=== PATIENT | female | born 1980 | race Caucasian/White ===

== ENCOUNTER 2023-06-21 05:14 | Inpatient (IN) ==
[2023-06-21 06:30] LABS: Pregnancy Test, Serum Negative (Negative)
[2023-06-21 06:41] LABS: INR 0.9 (0.9-1.1); Partial Thromboplastin Ratio 0.9; Partial Thromboplastin Time 26.1 Seconds (21.0-31.0)
[2023-06-21 06:42] LABS: Alanine Aminotransferase 41 U/L (7-52); Albumin Globulin Ratio 1.3 (0.9-2); Albumin Level 4.3 gm/dl (3.4-5.0); Alkaline Phosphatase 96 U/L (34-104); Anion Gap 11 (3-11); Aspartate Aminotransferase 20 U/L (13-39); BUN Creatinine Ratio 23.9 (10-20); Bilirubin,Total 1.2 mg/dl (0.2-1.0); Blood Urea Nitrogen 16 mg/dl (6-23); Carbon Dioxide 24 mmol/L (21-32); Chloride 102 mmol/L (98-107); Est GFR (African American) 123.9 ml/min; Est GFR (Non-African American) 106.9 ml/min; Globulin 3.3 gm/dl (2.5-4.0); Glucose 152 mg/dl (70-99(Fasting)); Potassium 3.3 mmol/L (3.5-5.1); Sodium 137 mmol/L (136-145); Total Protein 7.6 gm/dl (6.0-8.3)
--- NOTE | 2023-06-21 06:56 | Ultrasound Report ---
ULTRASOUND RIGHT LOWER EXTREMITY VENOUS CLINICAL HISTORY: Right leg pain. COMPARISON STUDY: No priors. TECHNIQUE: Real-time, grayscale, and color Doppler sonography of the deep veins of the right lower ex tremity was performed from the inguinal crease to the calf. Compression and augmentation were utilize d. FINDINGS: There is nonocclusive deep venous thrombosis in the right common femoral vein. Occlusive de ep venous thrombosis is seen throughout the superficial femoral and popliteal veins. There is deep ve nous thrombosis in the calf within the posterior tibial and peroneal veins. The greater saphenous vei n and the profunda femoris vein at the junction with the common femoral vein are clear. IMPRESSION: Extensive right lower extremity deep venous thrombosis as above. Occlusive thrombus is li tera acute. ACT 112: Negative or not required by law. Electronically signed by: Jose Rafael Verdugo M.D. 06/21/2023 6:54 AM
--- NOTE | 2023-06-21 07:17 | Emergency Department Note ---
History of Present Illness General Chief complaint: Swelling/Edema to Extremity Stated complaint: BLOOT CLOT IN RT LEG,SWELLING Time Seen by Provider: 06/21/23 06:32 Source: patient and RN notes reviewed Mode of arrival: ambulatory Limitations: no limitations History of Present Illness Maximum Pain Intensity: 10 This patient is a 42-year-old female who comes in with right leg pain and swelling she had a DVT and there that she says has been chronic and they took her off her Coumadin about 2 months ago and is just on aspirin over the last couple weeks has had increasing pain and swelling. No chest pain shortness breath or pleurisy no recent surgery or trauma she was on Coumadin and she said she was doing okay with this but they stopped her because they said there was nothing else they could do for her according to the patient. She does not have any known clotting disorder according to the patient but her records were all at an outside hospital Past Med/Surg History Social History Smoking Status: Never smoker Feels Safe at Home: Yes Immunizations: Past medical historyDVT x1, diabetes Social she she lives in [place] followed by Dr. Bermeo Review of Systems A total of 10 systems reviewed and were otherwise negative Physical Exam Vital Signs Vital Signs - 24 hr 06/21/23 05:28 06/21/23 06:30 Temperature 36.9 C Temperature Source Temporal Artery Scan Pulse Rate 106 H Pulse Rate [Apical] 91 H Pulse Rhythm [Apical] Regular Pulse Strength [Apical] Normal Respiratory Rate 18 16 Respiratory Effort / Characteristics Non-Labored Spontaneous Non-Labored Spontaneous Respiratory Depth Normal Normal Respiratory Pattern Regular Regular Blood Pressure 160/91 H Blood Pressure [Left Arm] 137/90 Blood Pressure Mean 114 Blood Pressure Mean [Left Arm] 105 Blood Pressure Position [Left Arm] Semi-fowlers Pulse Oximetry 96 95 Oxygen Delivery Method Room Air Room Air Sepsis Recent Fever Within 48 Hours No Sepsis New/Unexplained Change in Mental Status No Sepsis Action Taken by Nursing No Action Required General: Well developed well nourished in no acute distress, breathing comfortably on room air. Normal speech HEENT: Normal cephalic atraumatic. Pupils are equal round and reactive to light. Extraocular movements are intact. Oropharynx is pink with moist mucous membranes. No swelling of the mouth lips or tongue. Neck: Supple with a midline trachea. No meningeal signs or stiffness, no JVD or bruits. No Stridor. Chest: Clear to auscultation bilaterally. No wheezes or rhonchi. No increased work of breathing. Heart: Regular rate and rhythm without murmurs or gallops. Abdomen: Soft nontender, nondistended without rebound guarding or rigidity. Extremities: No cyanosis clubbing. Her right leg is swollen compared to the left. Its not red or warm. She has normal distal pulses Spine/Back. Non tender to palpation. No CVA tenderness Skin: Good turgor without rashes. Neurologic exam: Cranial nerves two through 12 are intact. Motor and sensation are intact and symmetrical throughout. Medical Decision Making Differential Diagnosis DVT, PE, electrolyte or metabolic abnormality, clotting disorder Medical Records Attestation: I reviewed the patient's medical records. Home Medications Current Medication List: was personally reviewed by me Laboratory Data Attestation: I reviewed the patient's lab results. 06/21/23 Unknown 06/21/23 Unknown Lab Results 06/21/23 06/21/23 06/21/23 Range/Units Unknown Unknown Unknown PT 10.0 (9.0-12.0) Seconds INR 0.9 (0.9-1.1) APTT 26.1 (21.0-31.0) Seconds PTT Ratio 0.9 Sodium 137 (136-145) mmol/L Potassium 3.3 L (3.5-5.1) mmol/L Chloride 102 (98-107) mmol/L Carbon Dioxide 24 (21-32) mmol/L Anion Gap 11 (3-11) BUN 16 (6-23) mg/dl Creatinine 0.67 (0.6-1.2) mg/dl Est Cr Clr Drug Dosing Not Reportable Est GFR ( Amer) 123.9 ml/min Est GFR (Non-Af Amer) 106.9 ml/min BUN/Creatinine Ratio 23.9 H (10-20) Glucose 152 H (70-99(Fasting)) mg/dl Calcium 9.0 (8.6-10.3) mg/dl Total Bilirubin 1.2 H (0.2-1.0) mg/dl AST 20 (13-39) U/L ALT 41 (7-52) U/L Alkaline Phosphatase 96 (34-104) U/L Total Protein 7.6 (6.0-8.3) gm/dl Albumin 4.3 (3.4-5.0) gm/dl Globulin 3.3 (2.5-4.0) gm/dl Albumin/Globulin Ratio 1.3 (0.9-2) HCG, Qual Negative (Negative) Imaging Data Radiologist's Impression: Venous Doppler Study 06/21/23 05:33 ULTRASOUND RIGHT LOWER EXTREMITY VENOUS CLINICAL HISTORY: Right leg pain. COMPARISON STUDY: No priors. TECHNIQUE: Real-time, grayscale, and color Doppler sonography of the deep veins of the right lower extremity was performed from the inguinal crease to the calf. Compression and augmentation were utilized. FINDINGS: There is nonocclusive deep venous thrombosis in the right common femoral vein. Occlusive deep venous thrombosis is seen throughout the superficial femoral and popliteal veins. There is deep venous thrombosis in the calf within the posterior tibial and peroneal veins. The greater saphenous vein and the profunda femoris vein at the junction with the common femoral vein are clear. IMPRESSION: Extensive right lower extremity deep venous thrombosis as above. Occlusive thrombus is likely acute. ACT 112: Negative or not required by law. Electronically signed by: Jose Rafael Verdugo M.D. 06/21/2023 6:54 AM MDM Narrative This patient comes in as scribed above she has a history of known DVT she stopped her Coumadin is got significantly worse we did an ultrasound here and is extensive DVT involving almost entire lower extremity. I am unclear of her previous history but I am concerned that with her large clot burden that she needs to be on anticoagulation and further work-up. She has no chest pain or shortness of breath. We have consulted the hospitalist for likely admission. In the meantime the patient was asking to leave. She did not want to stay we talked her at length and told her the seriousness of this if is not treated ad equately. I did consult the hospitalist Dr. Chan who came down and did ultimately convince the patient to stay. He will be ordering the anticoagulation for her and further work-up. Impression & Plan DVT (deep venous thrombosis), Left leg pain, Left leg swelling Discharge Plan Visit Data Chief Complaint: Swelling/Edema to Extremity Stated Complaint: BLOOT CLOT IN RT LEG,SWELLING ED Provider: Christopher Bar Discharge Problem: DVT (deep venous thrombosis), Left leg pain, Left leg swelling Forms Stand Alone Forms: [facility] Referrals Referrals: Tere Zazueta M.D. [Primary Care Provider] -
[2023-06-21] MEDS ORDERED: ENOXAPARIN 1 MG/KG SQ SCH (08:45)
[2023-06-21 09:13] LABS: Basophils # (auto) 0.07 K/uL (0-0.2); Basophils % (auto) 0.7 %; Eosinophils # (auto) 0.17 K/uL (0-0.50); Eosinophils % (auto) 1.8 %; Hematocrit (blood only) 40.8 % (37.0-47.0); Hemoglobin 13.9 g/dl (12.0-16.0); Immature Granulocytes # (auto) 0.18 K/uL (0.01-0.20); Immature Granulocytes % (auto) 1.9 %; Lymphocytes # (auto) 2.61 K/uL (1.2-3.4); Lymphocytes % (auto) 27.8 %; Mean Corpuscular Hemoglobin 30.2 pg (25.0-34.0); Mean Corpuscular Hgb Conc 34.1 g/dL (32.0-36.0); Mean Corpuscular Volume 88.5 fL (80.0-100.0); Mean Platelet Volume 10.1 fL (9.4-12.4); Monocytes # (auto) 0.55 K/uL (0.11-0.59); Monocytes % (auto) 5.9 %; Neutrophils # (auto) 5.82 K/uL (1.40-6.50); Neutrophils % (auto) 61.9 %; Platelet Count 223 K/uL (130-400); RDW Standard Deviation 41.6 fL (36.4-46.3); Red Blood Count 4.61 M/uL (4.20-5.40)
[2023-06-21] MEDS ORDERED: Patient's ALLERGY Info needs ENTERED SCH (09:15)
[2023-06-21] MEDS ORDERED: ACETAMINOPHEN 325 MG TAB PO PRN (10:29)
[2023-06-21] MEDS ORDERED: POLYETHYLENE (MIRALAX) 17 GM PACK PO PRN (10:29)
[2023-06-21] MEDS ORDERED: CARBOHYDRATES FOR HYPOGLYCEMIA PO PRN (10:29)
[2023-06-21] MEDS ORDERED: DEXTROSE 50% 50 ML SYRINGE IV PRN (10:29)
[2023-06-21] MEDS ORDERED: ALUMINUM/MAGNESIUM SUSP 30 ML UDC PO PRN (10:29)
[2023-06-21] MEDS ORDERED: GLUCOSE 10 TAB/TUBE PO PRN (10:29)
[2023-06-21] MEDS ORDERED: GLUCAGON FOR INJ 1 MG VIAL SQ PRN (10:29)
[2023-06-21] MEDS ORDERED: GLUCOSE 40% GEL 15 GM TUBE PO PRN (10:29)
[2023-06-21] MEDS: LANTUS PER UNIT CHARGE SQ SCH ×2 (11:21→20:51)
[2023-06-21] MEDS: ENOXAPARIN 100 MG/1ML SYR SQ SCH ×2 (11:21→20:52)
[2023-06-21] MEDS ORDERED: IBUPROFEN 600 MG TAB PO PRN (11:27)
[2023-06-21] MEDS: INSULIN ASPART PER UNIT CHARGE SC SCH ×3 (12:24→20:32)
--- NOTE | 2023-06-21 13:51 | Electrocardiogram Report ---
Test Reason : Blood Pressure : / mmHG Vent. Rate : 102 BPM Atrial Rate : 102 BPM P-R Int : 192 ms QRS Dur : 088 ms QT Int : 352 ms P-R-T Axes : 038 032 042 degrees QTc Int : 458 ms Sinus tachycardia Normal ECG No previous ECGs available Confirmed by Terrance Garcia ([id number]) on 06/21/2023 1:51:01 PM Referred By: REFERRED SELF Confirmed By:Terrance Garcia
--- NOTE | 2023-06-21 14:22 | History & Physical Report ---
Date of Service June 21, 2023 Assessment & Plan (1) DVT (deep venous thrombosis): (2) Type 2 diabetes mellitus: Plan: Patient presents to the ED with complaints of progressive right leg and swelling for past 2 weeks. On presentation to the ED, patient was afebrile, normotensive and saturating well on room air. CBC showed a hemoglobin of 13.9. No leukocytosis BMP showed potassium of 3.3. EKG personally reviewed sinus tachycardia; no ST or T wave changes Venous duplex results reviewed; extensive right lower extremity DVT with occlusive DVT in superficial femoral and popliteal vein. Nonocclusive DVT in the right common femoral vein. Started on subcu Lovenox 1 g/kg every 12 hours. Discussed with patient regarding choice of anticoagulation. Patient was previously on Coumadin; would like to switch over to DOAC. Prescription for Eliquis sent; co-pay of $3. Continue to monitor on telemetry, monitor respiratory status. Pain control for leg pain with ibuprofen and Tylenol. Discussed with Brianna FAUSTIN ( from Hematology office of Dr. Zazueta); patient had hyper coagulable work up done as outpatient. Ok with starting Eliquis. Patient to follow up after discharge. Other conditions; Type 2 diabetes mellitus; Lantus and SSI. Hold Trulicity, empagliflozin and metformin Hyperlipidemia; continue on ezetimibe. Time spent evaluating patient, direct bedside care, chart review, placing orders, interpretation of diagnostic studies, discussion with consultants, p atient, and family members, as well as other required patient management activities is 80 minutes. Please note the above document was generated using voice recognition software. It may contain grammatical, syntax or spelling errors. Any formal questions or concerns about the content, text or information contained within the body of this dictation should be directly addressed to the provider for clarification Admission and Anticipated Discharge Date Admission Date: June 21, 2023 History of Present Illness Chief Complaint: Right leg pain and swelling Primary Care Provider: Tere Zazueta History obtained from chart review and interview with the patient. Past medical history of type 2 diabetes mellitus, history of right leg DVT (previously on Coumadin; stopped 2 months ago, on aspirin currently) Patient presents to the ED with complaints of progressive right leg and swelling for past 2 weeks. She reports history of right lower extremity DVT diagnosed 3 years back for which she was on Coumadin. She had followed up with her scientific research manager who recommended to stop Coumadin and place her on aspirin. Patient reports that she had ultrasound of her leg done prior to discontinuation which showed chronic DVT. Patient has noticed that her leg swelling and pain has progressively increased in the last 2 weeks which has caused to have ambulatory dysfunction. On presentation to the ED, patient was afebrile, normotensive and saturating well on room air. CBC showed a hemoglobin of 13.9. No leukocytosis BMP showed potassium of 3.3. EKG personally reviewed sinus tachycardia; no ST or T wave changes Venous duplex results reviewed; extensive right lower extremity DVT with occlusive DVT in superficial femoral and popliteal vein. Nonocclusive DVT in t he right common femoral vein. Patient to be admitted to medical floor for further management Past medical history; as above Past surgical history; history of cholecystectomy Personal history; does not smoke, does not drink alcohol Family history; no history of blood clot disorder in the family. Allergies Allergy/AdvReac Type Severity Reaction Status Date / Time Iodinated Contrast Media Allergy Hives Verified 06/21/23 09:28 Home Medications Medication Instructions Recorded Confirmed Type apixaban 5 mg tablet (Eliquis) 5 mg PO BID #74 tabs 06/21/23 Rx dulaglutide 0.75 mg/0.5 mL 0.75 mg subcut .Wednesdays06/21/23 06/21/23 History subcutaneous pen injector (Trulicity) empagliflozin 25 mg tablet 25 mg PO HS 06/21/23 06/21/23 History (Jardiance) ezetimibe 10 mg tablet 10 mg PO HS 06/21/23 06/21/23 History ferrous sulfate 325 mg (65 mg 325 mg PO HS 06/21/23 06/21/23 History iron) tablet (FeroSul) metformin 850 mg tablet 850 mg PO BID 06/21/23 06/21/23 History Past Med/Surg History Social History Smoking Status: Former smoker Hx Alcohol Use: No Hx Substance Use: No Preferred Language: Kazakh Communication Ability: Effective Director Of Vendor Management Required: No Beliefs That Will Affect Care: None Current Living Situation: Spouse Current Living Situation Comment: home with fiance and son Other Information That Helps Us Care for You: No Feels Safe at Home: Yes Safety Concerns: Feels Safe At This Time Assistive Devices: None Review of Systems Review of Systems: All systems reviewed & are unremarkable except as noted in Subjective Physical Exam Physical Exam: Constitutional: Alert orient x3; not in distress. Respiratory: normal respiratory effort, lungs clear to auscultation, no wheeze, rales, rhonchi. Normal insp/exp effort, no accessory muscle use Cardiovascular: RRR, no murmur, no edema Vessels: no JVD or carotid bruit Chest: normal inspection of chest Abdomen: normal bowel sounds, soft, nontender, no hepatosplenomegaly Musculoskeletal: Right leg swollen from calf to thigh region. No overlying skin changes. Skin: no rashes, warm and dry normal turgor Neurologic: PERRL, EOMI, accommodation nl, no face palsy, no dysarthria CN's II- XI intact bilaterally and moves all extremities Psychiatric: A+Ox3, euthymic affect Results & Data Results & Data Vital Signs (Past 12 Hours) Vital Signs Temp Pulse Pulse Pulse Resp BP BP 06/21/23 10:45 06/21/23 12:06 116 H 06/21/23 10:46 37.0 C 109 H 20 153/99 H 06/21/23 08:30 90 16 06/21/23 06:30 91 H 16 137/90 06/21/23 05:28 36.9 C 106 H 18 160/91 H Pulse Ox O2 Del Method 06/21/23 10:45 Room Air 06/21/23 12:06 06/21/23 10:46 99 Room Air 06/21/23 08:30 95 Room Air 06/21/23 06:30 95 Room Air 06/21/23 05:28 96 Room Air Laboratory Results Laboratory Results WBC 9.40 K/ul (4.8-10.8) 06/21/23 Unknown RBC 4.61 M/uL (4.20-5.40) 06/21/23 Unknown Hgb 13.9 g/dl (12.0-16.0) 06/21/23 Unknown Hct 40.8 % (37.0-47.0) 06/21/23 Unknown MCV 88.5 fL (80.0-100.0) 06/21/23 Unknown MCH 30.2 pg (25.0-34.0) 06/21/23 Unknown MCHC 34.1 g/dL (32.0-36.0) 06/21/23 Unknown RDW Std Deviation 41.6 fL (36.4-46.3) 06/21/23 Unknown RDW Coeff of Berna 13.0 % (11.5-14.5) 06/21/23 Unknown Plt Count 223 K/uL (130-400) 06/21/23 Unknown MPV 10.1 fL (9.4-12.4) 06/21/23 Unknown Immature Gran % (Auto) 1.9 % 06/21/23 Unknown Neut % (Auto) 61.9 % 06/21/23 Unknown Lymph % (Auto) 27.8 % 06/21/23 Unknown [place] % (Auto) 5.9 % 06/21/23 Unknown Eos % (Auto) 1.8 % 06/21/23 Unknown Baso % (Auto) 0.7 % 06/21/23 Unknown Neut # (Auto) 5.82 K/uL (1.40-6.50) 06/21/23 Unknown Lymph # (Auto) 2.61 K/uL (1.2-3.4) 06/21/23 Unknown [place] # (Auto) 0.55 K/uL (0.11-0.59) 06/21/23 Unknown Eos # (Auto) 0.17 K/uL (0-0.50) 06/21/23 Unknown Baso # (Auto) 0.07 K/uL (0-0.2) 06/21/23 Unknown Immature Gran # (Auto) 0.18 K/uL (0.01-0.20) 06/21/23 Unknown PT 10.0 Seconds (9.0-12.0) 06/21/23 Unknown INR 0.9 (0.9-1.1) 06/21/23 Unknown APTT 26.1 Seconds (21.0-31.0) 06/21/23 Unknown PTT Ratio 0.9 06/21/23 Unknown Sodium 137 mmol/L (136-145) 06/21/23 Unknown Potassium 3.3 mmol/L (3.5-5.1) L 06/21/23 Unknown Chloride 102 mmol/L (98-107) 06/21/23 Unknown Carbon Dioxide 24 mmol/L (21-32) 06/21/23 Unknown Anion Gap 11 (3-11) 06/21/23 Unknown BUN 16 mg/dl (6-23) 06/21/23 Unknown Creatinine 0.67 mg/dl (0.6-1.2) 06/21/23 Unknown Est Cr Clr Drug Dosing Not Reportable 06/21/23 Unknown Est GFR ( Amer) 123.9 ml/min 06/21/23 Unknown Est GFR (Non-Af Amer) 106.9 ml/min 06/21/23 Unknown BUN/Creatinine Ratio 23.9 (10-20) H 06/21/23 Unknown Glucose 152 mg/dl (70-99(Fasting)) H 06/21/23 Unknown POC Glucose 168 mg/dl (70-99) H 06/21/23 11:32 Calcium 9.0 mg/dl (8.6-10.3) 06/21/23 Unknown Total Bilirubin 1.2 mg/dl (0.2-1.0) H 06/21/23 Unknown AST 20 U/L (13-39) 06/21/23 Unknown ALT 41 U/L (7-52) 06/21/23 Unknown Alkaline Phosphatase 96 U/L (34-104) 06/21/23 Unknown Total Protein 7.6 gm/dl (6.0-8.3) 06/21/23 Unknown Albumin 4.3 gm/dl (3.4-5.0) 06/21/23 Unknown Globulin 3.3 gm/dl (2.5-4.0) 06/21/23 Unknown Albumin/Globulin Ratio 1.3 (0.9-2) 06/21/23 Unknown HCG, Qual Negative (Negative) 06/21/23 Unknown Impressions Venous Doppler Study 06/21/23 05:33 ULTRASOUND RIGHT LOWER EXTREMITY VENOUS CLINICAL HISTORY: Right leg pain. COMPARISON STUDY: No priors. TECHNIQUE: Real-time, grayscale, and color Doppler sonography of the deep veins of the right lower extremity was performed from the inguinal crease to the calf. Compression and augmentation were utilized. FINDINGS: There is nonocclusive deep venous thrombosis in the right common femoral vein. Occlusive deep venous thrombosis is seen throughout the superficial femoral and popliteal veins. There is deep venous thrombosis in the calf within the posterior tibial and peroneal veins. The greater saphenous vein and the profunda femoris vein at the junction with the common femoral vein are clear. IMPRESSION: Extensive right lower extremity deep venous thrombosis as above. Occlusive thrombus is likely acute. ACT 112: Negative or not required by law. Electronically signed by: Jose Rafael Verdugo M.D. 06/21/2023 6:54 AM Code Status & VTE Plan VTE Prophylaxis Plan VTE Prophylaxis will be ordered: No (1) DVT (deep venous thrombosis) Chronicity: acute DVT location: lower extremity Laterality: left
[2023-06-21] MEDS ORDERED: POTASSIUM CHLORIDE CRTAB 20 MEQ TABCR PO STA (14:32)
[2023-06-22 06:16] LABS: Basophils # (auto) 0.06 K/uL (0-0.2); Basophils % (auto) 0.6 %; Eosinophils # (auto) 0.13 K/uL (0-0.50); Eosinophils % (auto) 1.4 %; Hematocrit (blood only) 41.7 % (37.0-47.0); Hemoglobin 14.2 g/dl (12.0-16.0); Immature Granulocytes # (auto) 0.05 K/uL (0.01-0.20); Immature Granulocytes % (auto) 0.5 %; Lymphocytes # (auto) 2.53 K/uL (1.2-3.4); Lymphocytes % (auto) 26.9 %; Mean Corpuscular Hgb Conc 34.1 g/dL (32.0-36.0); Mean Corpuscular Volume 88.2 fL (80.0-100.0); Mean Platelet Volume 9.8 fL (9.4-12.4); Monocytes # (auto) 0.56 K/uL (0.11-0.59); Monocytes % (auto) 5.9 %; Neutrophils # (auto) 6.09 K/uL (1.40-6.50); Neutrophils % (auto) 64.7 %; Platelet Count 219 K/uL (130-400); RDW Coefficient of Variation 13.1 % (11.5-14.5); RDW Standard Deviation 42.4 fL (36.4-46.3); Red Blood Count 4.73 M/uL (4.20-5.40); White Blood Count 9.42 K/ul (4.8-10.8)
[2023-06-22 06:23] LABS: BUN Creatinine Ratio 27.1 (10-20); Calcium 8.8 mg/dl (8.6-10.3); Creatinine Clr Calc Pharmacy 174.7 ml/min; Est GFR (African American) 138.3 ml/min; Est GFR (Non-African American) 119.3 ml/min; Potassium 3.5 mmol/L (3.5-5.1)
[2023-06-22] MEDS: ENOXAPARIN 100 MG/1ML SYR SQ SCH (08:26)
[2023-06-22] MEDS: LANTUS PER UNIT CHARGE SQ SCH (08:26)
[2023-06-22] MEDS: INSULIN ASPART PER UNIT CHARGE SC SCH ×2 (08:27→12:24)
--- NOTE | 2023-06-22 12:39 | Hospitalist Progress Note ---
Date of Service June 22, 2023 Assessment & Plan (1) DVT (deep venous thrombosis): (2) Type 2 diabetes mellitus: Plan: Patient presents to the ED with complaints of progressive right leg and swelling for past 2 weeks. On presentation to the ED, patient was afebrile, normotensive and saturating well on room air. Right lower extremity DVT --Venous duplex results reviewed; extensive right lower extremity DVT with occlusive DVT in superficial femoral and popliteal vein. Nonocclusive DVT in the right common femoral vein. Prior Provider discussed with Brianna FAUSTIN ( from Hematology office of Dr. Zazueta); patient had hypercoagulable work up done as outpatient. Ok with starting Eliquis. Patient to follow up after discharge. Started on SQ Lovenox 1 g/kg every 12 hours. Prior Provider discussed with patient regarding choice of anticoagulation. Patient was previously on Coumadin; would like to switch over to DOAC. Prescription for Eliquis sent; co-pay of $3. Advised to avoid NSAIDs while on anticoagulation Plan to discharge on Eliquis as per patient's request Also advised to follow-up with oncology upon discharge Hypokalemia Replete electrolytes as needed Other conditions: Type 2 diabetes mellitus; Lantus and SSI. Hold Trulicity, empagliflozin and me tformin Hyperlipidemia; continue on ezetimibe. DVT Px: Lovenox SQ CODE STATUS Full code Disposition Home Admission and Anticipated Discharge Date Admission Date: June 21, 2023 Subjective Patient is seen and examined at bedside States having significant right leg edema Leg pain much improved No bleeding issues while on Lovenox Denies any chest pain, dyspnea, dizziness, nausea, vomiting, abdominal pain No other complaints Review of Systems Review of Systems: All systems reviewed & are unremarkable except as noted in Subjective Physical Exam Physical Exam: Physical Exam: Vitals signs as noted above General Appearance:Moderately built and nourished, no apparent distress Head: normocephalic, Atraumatic Eyes: normal inspection, EOMI Neck: supple, Trachea midline Respiratory/Chest: Normal breath sounds, CTA, No accessory muscle use Cardiovascular: S1, S2, No murmur Abdomen/GI:Soft, Non tender, Bowel sounds present Extremities/Musculoskeletal:normal inspection, RLE edema Neurologic/Psych:AAOX3, grossly no focal neurological deficits Skin: normal color, warm Results & Data Results & Data Vital Signs (Past 12 Hours) Vital Signs Temp Pulse Pulse Resp BP Pulse Ox O2 Del Method 06/22/23 11:46 36.7 C 97 H 18 129/82 96 Room Air 06/22/23 10:48 36.7 C 81 18 117/79 97 06/22/23 10:45 Room Air 06/22/23 07:56 36.7 C 81 18 117/79 97 Room Air 06/22/23 07:25 84 06/22/23 05:17 36.7 C 82 20 130/83 97 Room Air 06/22/23 04:59 77 Laboratory Results Short CBC 06/22/23 Range/Units 05:40 WBC 9.42 (4.8-10.8) K/ul Hgb 14.2 (12.0-16.0) g/dl Hct 41.7 (37.0-47.0) % Plt Count 219 (130-400) K/uL BMP 06/22/23 05:40 Sodium 137 Potassium 3.5 Chloride 105 Carbon Dioxide 24 BUN 13 Creatinine 0.48 L Glucose 143 H Calcium 8.8 (1) DVT (deep venous thrombosis) Chronicity: acute DVT location: lower extremity Laterality: left
--- NOTE | 2023-06-22 17:38 | Discharge Summary ---
Date of Service June 22, 2023 Admission HPI Per Admitting Provider History obtained from chart review and interview with the patient. Past medical history of type 2 diabetes mellitus, history of right leg DVT (previously on Coumadin; stopped 2 months ago, on aspirin currently) Patient presents to the ED with complaints of progressive right leg and swelling for past 2 weeks. She reports history of right lower extremity DVT diagnosed 3 years back for which she was on Coumadin. She had followed up with her lacquer pin press operator who recommended to stop Coumadin and place her on aspirin. Patient reports that she had ultrasound of her leg done prior to discontinuation which showed chronic DVT. Patient has noticed that her leg swelling and pain has progressively increased in the last 2 weeks which has caused to have ambulatory dysfunction. On presentation to the ED, patient was afebrile, normotensive and saturating well on room air. CBC showed a hemoglobin of 13.9. No leukocytosis BMP showed potassium of 3.3. EKG personally reviewed sinus tachycardia; no ST or T wave changes Venous duplex results reviewed; extensive right lower extremity DVT with occlusive DVT in superficial femoral and popliteal vein. Nonocclusive DVT in the right common femoral vein. Patient to be admitted to medical floor for further management Past medical history; as above Past surgical history; history of cholecystectomy Personal history; does not smoke, does not drink alcohol Family history; no history of blood clot disorder in the family. Admission Exam Per Admitting Provider Constitutional: Alert orient x3; not in distress. Respiratory: normal respiratory effort, lungs clear to auscultation, no wheeze, rales, rhonchi. Normal insp/exp effort, no accessory muscle use Cardiovascular: RRR, no murmur, no edema Vessels: no JVD or carotid bruit Chest: normal inspection of chest Abdomen: normal bowel sounds, soft, nontender, no hepatosplenomegaly Musculoskeletal: Right leg swollen from calf to thigh region. No overlying skin changes. Skin: no rashes, warm and dry normal turgor Neurologic: PERRL, EOMI, accommodation nl, no face palsy, no dysarthria CN's II- XI intact bilaterally and moves all extremities Psychiatric: A+Ox3, euthymic affect Principal Diagnosis Right lower extremity deep vein thrombosis Discharge Data Allergies Allergy/AdvReac Type Severity Reaction Status Date / Time Iodinated Contrast Media Allergy Hives Verified 06/21/23 09:28 Consultations 06/21/23 08:36 ED Decision to Admit Stat Procedures Performed Laboratory Results WBC 9.42 K/ul (4.8-10.8) 06/22/23 05:40 RBC 4.73 M/uL (4.20-5.40) 06/22/23 05:40 Hgb 14.2 g/dl (12.0-16.0) 06/22/23 05:40 Hct 41.7 % (37.0-47.0) 06/22/23 05:40 MCV 88.2 fL (80.0-100.0) 06/22/23 05:40 MCH 30.0 pg (25.0-34.0) 06/22/23 05:40 MCHC 34.1 g/dL (32.0-36.0) 06/22/23 05:40 RDW Std Deviation 42.4 fL (36.4-46.3) 06/22/23 05:40 RDW Coeff of Benra 13.1 % (11.5-14.5) 06/22/23 05:40 Plt Count 219 K/uL (130-400) 06/22/23 05:40 MPV 9.8 fL (9.4-12.4) 06/22/23 05:40 Immature Gran % (Auto) 0.5 % 06/22/23 05:40 Neut % (Auto) 64.7 % 06/22/23 05:40 Lymph % (Auto) 26.9 % 06/22/23 05:40 Chambers % (Auto) 5.9 % 06/22/23 05:40 Eos % (Auto) 1.4 % 06/22/23 05:40 Baso % (Auto) 0.6 % 06/22/23 05:40 Neut # (Auto) 6.09 K/uL (1.40-6.50) 06/22/23 05:40 Lymph # (Auto) 2.53 K/uL (1.2-3.4) 06/22/23 05:40 Chambers # (Auto) 0.56 K/uL (0.11-0.59) 06/22/23 05:40 Eos # (Auto) 0.13 K/uL (0-0.50) 06/22/23 05:40 Baso # (Auto) 0.06 K/uL (0-0.2) 06/22/23 05:40 Immature Gran # (Auto) 0.05 K/uL (0.01-0.20) 06/22/23 05:40 PT 10.0 Seconds (9.0-12.0) 06/21/23 Unknown INR 0.9 (0.9-1.1) 06/21/23 Unknown APTT 26.1 Seconds (21.0-31.0) 06/21/23 Unknown PTT Ratio 0.9 06/21/23 Unknown Sodium 137 mmol/L (136-145) 06/22/23 05:40 Potassium 3.5 mmol/L (3.5-5.1) 06/22/23 05:40 Chloride 105 mmol/L (98-107) 06/22/23 05:40 Carbon Dioxide 24 mmol/L (21-32) 06/22/23 05:40 Anion Gap 8 (3-11) 06/22/23 05:40 BUN 13 mg/dl (6-23) 06/22/23 05:40 Creatinine 0.48 mg/dl (0.6-1.2) L 06/22/23 05:40 Est Cr Clr Drug Dosing 174.7 ml/min 06/22/23 05:40 Est GFR ( Amer) 138.3 ml/min 06/22/23 05:40 Est GFR (Non-Af Amer) 119.3 ml/min 06/22/23 05:40 BUN/Creatinine Ratio 27.1 (10-20) H 06/22/23 05:40 Glucose 143 mg/dl (70-99(Fasting)) H 06/22/23 05:40 POC Glucose 147 mg/dl (70-99) H 06/22/23 11:22 Calcium 8.8 mg/dl (8.6-10.3) 06/22/23 05:40 Total Bilirubin 1.2 mg/dl (0.2-1.0) H 06/21/23 Unknown AST 20 U/L (13-39) 06/21/23 Unknown ALT 41 U/L (7-52) 06/21/23 Unknown Alkaline Phosphatase 96 U/L (34-104) 06/21/23 Unknown Total Protein 7.6 gm/dl (6.0-8.3) 06/21/23 Unknown Albumin 4.3 gm/dl (3.4-5.0) 06/21/23 Unknown Globulin 3.3 gm/dl (2.5-4.0) 06/21/23 Unknown Albumin/Globulin Ratio 1.3 (0.9-2) 06/21/23 Unknown HCG, Qual Negative (Negative) 06/21/23 Unknown Impressions Venous Doppler Study 06/21/23 05:33 ULTRASOUND RIGHT LOWER EXTREMITY VENOUS CLINICAL HISTORY: Right leg pain. COMPARISON STUDY: No priors. TECHNIQUE: Real-time, grayscale, and color Doppler sonography of the deep veins of the right lower extremity was performed from the inguinal crease to the calf. Compression and augmentation were utilized. FINDINGS: There is nonocclusive deep venous thrombosis in the right common femoral vein. Occlusive deep venous thrombosis is seen throughout the superfici al femoral and popliteal veins. There is deep venous thrombosis in the calf within the posterior tibial and peroneal veins. The greater saphenous vein and the profunda femoris vein at the junction with the common femoral vein are clear. IMPRESSION: Extensive right lower extremity deep venous thrombosis as above. Occlusive thrombus is likely acute. ACT 112: Negative or not required by law. Electronically signed by: Jose Rafael Verdugo M.D. 06/21/2023 6:54 AM Ordered Studies 06/21/23 05:33 US venous doppler LE RT Stat Hospital Course (1) DVT (deep venous thrombosis): (2) Type 2 diabetes mellitus: Patient presents to the ED with complaints of progressive right leg and swelling for past 2 weeks. On presentation to the ED, patient was afebrile, normotensive and saturating well on room air. Right lower extremity DVT --Venous duplex results reviewed; extensive right lower extremity DVT with occlusive DVT in superficial femoral and popliteal vein. Nonocclusive DVT in the right common femoral vein. Prior Provider discussed with Brianna FAUSTIN ( from Hematology office of Dr. Zazueta); patient had hypercoagulable work up done as outpatient. Ok with starting Eliquis. Patient to follow up after discharge. Started on SQ Lovenox 1 g/kg every 12 hours. Prior Provider discussed with patient regarding choice of anticoagulation. Patient was previously on Coumadin; would like to switch over to DOAC. Prescription for Eliquis sent; co-pay of $3. Advised to avoid NSAIDs while on anticoagulation Plan to discharge on Eliquis as per patient's request Also advised to follow-up with oncology upon discharge Hypokalemia Replete electrolytes as needed Other conditions: Type 2 diabetes mellitus; Lantus and SSI. Hold Trulicity, empagliflozin and metformin Hyperlipidemia; continue on ezetimibe. DVT Px: Lovenox SQ CODE STATUS Full code Disposition Home Total Time Total Time Spent Total Time Spent (In Minutes): 50 minutes Discharge Plan Discharge Items Patient Disposition: Home - Self-Care Reason For Visit: DVT Discharge Diagnosis: Right lower extremity deep vein thrombosis Activity: Per Instructions section Exercise/Sports: Wait until after follow-up appointment Non-emergency contact: Primary Care Provider Call non-emergency contact if: you have any medication questions, your symptoms worsen, your pain is concerning for you and you have a fever Follow-up/Referrals: Tere Zazueta M.D. [Primary Care Provider] - Diet: Carb Consistent or DM2 Addtl Attending Provider Instructions: Follow-up with your primary care physician Dr. Zazueta in 1 week --- Start taking apixaban (Eliquis) 10 mg twice a day for 7 days, then take 5 mg twice a day as advised. --- Duration of anticoagulation with Eliquis to be determined by your primary care physician/lacquer pin press operator. Seek immediate medical attention if your symptoms reoccur or worsen Please take all medications as instructed on discharge list below. Please call if you have any questions or problems. You can reach a [facility] hospitalist on duty at [facility] 24 hours a day by calling [phone] Pending Studies at Discharge: No Stand-Alone Forms: My [facility], Smoking Cessation Medications and DC Order Prescriptions: New Eliquis 5 mg tablet 5 mg PO BID Qty: 74 0RF Rx Instructions: Take 2 tablets (10 mg) twice a day for 7 days, then take 1 tablet (5 mg) then after. Continued metformin 850 mg tablet 850 mg PO BID ferrous sulfate [FeroSul] 325 mg (65 mg iron) tablet 325 mg PO HS ezetimibe 10 mg tablet 10 mg PO HS Jardiance 25 mg tablet 25 mg PO HS Trulicity 0.75 mg/0.5 mL pen injector 0.75 mg SUBCUT .[place] Discharge Orders: Discharge Order (Routine); Ordered 06/22/23 Ordered By: Levi Escobedo/Other Patient Handouts: DVT Complications, Managing Type 2 Diabetes, DVT Tx, Special Foot Care for Diabetes Admission Data Admit Date/Time: 06/21/23 09:26 Attending Provider: Levi Burgos Admit Provider: Javon Chan Primary Care Provider: Tere Zazueta Other Providers: Javon Chan Other Interventions: Discharge Summary Assessment (RN) Last Done: 06/22/23 10:48
== END 2023-06-22 13:24 | disposition home or self-care (01) | DRG 301 ==
LOC: ED 05:14 → 2N 09:26 → SUATTDRO 09:26 → 2N 10:03